=== PATIENT | female | born 1995 ===

== ENCOUNTER 2022-03-18 09:28 | Outpatient (CLI) | payer OTHER | END 2022-03-18 11:45 | disposition home or self-care (01) | LOC: PRENATAL 09:28 | PROVIDERS: ATTEND Obstetrics & Gynecology Maternal & Fetal Medicine | DX: O35.9XX0 Maternal care for (suspected) fetal abnormality and damage, unspecified, not applicable or unspecified (principal); O35.3XX0 Maternal care for (suspected) damage to fetus from viral disease in mother, not applicable or unspecified; Z3A.21 21 weeks gestation of pregnancy ==

== ENCOUNTER 2022-04-27 13:05 | Inpatient (IN) | payer OTHER ==
[~2022-04-27] VITALS: Ht 165.1 cm; Wt 97.1 kg
[2022-04-27] MEDS ORDERED: PEPCID AC20 MG (15:36)
[2022-04-27] MEDS ORDERED: PRENATAL TABLE1 EAC1 (15:36)
== END 2022-04-29 12:26 | disposition home or self-care (01) | DRG 831 ==
LOC: OBS/DEL 13:05 → LDR 04-28 10:57
PROVIDERS: ADMIT Obstetrics & Gynecology; ATTEND Obstetrics & Gynecology
PROC: 4A1HXCZ Monitoring of Products of Conception, Cardiac Rate, External Approach (ICD-10-PCS; principal; 2022-04-28)
PROC: B246ZZZ Ultrasonography of Right and Left Heart (ICD-10-PCS; 2022-04-28)
DX: O99.012 Anemia complicating pregnancy, second trimester (principal); O60.02 Preterm labor without delivery, second trimester; Z20.822 Contact with and (suspected) exposure to COVID-19; D64.9 Anemia, unspecified; O26.842 Uterine size-date discrepancy, second trimester; O26.892 Other specified pregnancy related conditions, second trimester; R10.2 Pelvic and perineal pain; Z3A.27 27 weeks gestation of pregnancy

== ENCOUNTER 2022-06-04 09:38 | Outpatient (CLI) | payer OTHER ==
[~2022-06-04 09:38] MED LIST: OSEL75CA PO; PEPCID AC20 MG; PRENATAL TABLE1 EAC1
== END 2022-06-04 10:45 | disposition home or self-care (01) ==
LOC: PRENATAL 09:38
PROVIDERS: ATTEND Obstetrics & Gynecology Maternal & Fetal Medicine
DX: O26.849 Uterine size-date discrepancy, unspecified trimester (principal); O36.8199 Decreased fetal movements, unspecified trimester, other fetus; O35.9XX0 Maternal care for (suspected) fetal abnormality and damage, unspecified, not applicable or unspecified; Z3A.32 32 weeks gestation of pregnancy

== ENCOUNTER 2022-07-03 22:37 | Outpatient (CLI) | payer OTHER ==
[~2022-07-03] VITALS: Ht 165.1 cm; Wt 99.8 kg
[2022-07-03] MEDS ORDERED: FLAGYL375 MG PO (22:46)
== END 2022-07-04 13:35 | disposition home or self-care (01) ==
LOC: OBS/DEL 22:37
PROVIDERS: ATTEND Obstetrics & Gynecology
DX: O47.03 False labor before 37 completed weeks of gestation, third trimester (principal); Z3A.36 36 weeks gestation of pregnancy

== ENCOUNTER 2022-07-15 03:20 | Inpatient (IN) | payer OTHER ==
[~2022-07-15] VITALS: Ht 165.1 cm; Wt 3.6 kg
[~2022-07-15 03:20] MED LIST changes: +FLAGYL375 MG PO; +PRENATAL TABLE1 EAC1 PO
== END 2022-07-17 16:06 | disposition home or self-care (01) | DRG 785 ==
LOC: OB/GYN 03:20 → LDR 03:20 → O/R 10:47 → OB/GYN 12:00
PROVIDERS: ADMIT Obstetrics & Gynecology; ATTEND Obstetrics & Gynecology
PROC: 0UB70ZZ Excision of Bilateral Fallopian Tubes, Open Approach (ICD-10-PCS; 2022-07-15)
PROC: 4A1HXCZ Monitoring of Products of Conception, Cardiac Rate, External Approach (ICD-10-PCS; 2022-07-15)
PROC: 10D00Z1 Extraction of Products of Conception, Low, Open Approach (ICD-10-PCS; principal; 2022-07-15 11:30)
DX: O82 Encounter for cesarean delivery without indication (principal); O62.0 Primary inadequate contractions; Z3A.38 38 weeks gestation of pregnancy; Z37.0 Single live birth; Z20.822 Contact with and (suspected) exposure to COVID-19; Z30.2 Encounter for sterilization